=== PATIENT | female | born 1960 | race Caucasian/White ===

== ENCOUNTER 2016-09-15 08:01 | Outpatient (CLI) | payer OTHER ==
--- NOTE | 2016-09-15 18:39 | ULT ---
ABDOMINAL ULTRASOUND: Date: 09-15-16 Ultrasound of the abdomen was performed for evaluation of this patient with known Hepatitis C. Abdom inal pain was also reported. FINDINGS: The liver is 13.8 cm in oblique sagittal length which is normal. Internally it appears normal. There are no dilated ducts or masses seen. The gallbladder has at least one large gallstone and perhaps s ome smaller ones. The wall is mildly thick at 3 mm. The common bile duct is enlarged, being 8 mm in width. The pancreas was seen incompletely but the visible areas appear normal. The right kidney was 11.1 cm in length and the left kidney was 10.6 cm. Both appear normal. The spleen is normal in size. The inferior vena cava and aorta were unremarkable. IMPRESSION: 1. Gallstone with thickening of the gallbladder wall and enlargement of the common bile duct. 2. No hepatic abnormality seen. POS: HOME
== END 2016-09-15 08:02 | disposition home or self-care (01) ==
LOC: BURULT 08:01
PROVIDERS: ATTEND Internal Medicine Gastroenterology
DX: B18.2 Chronic viral hepatitis C (principal); K80.20 Calculus of gallbladder without cholecystitis without obstruction; K83.8 Other specified diseases of biliary tract
CPT/HCPCS: 76700

== ENCOUNTER 2016-10-06 12:57 | Emergency (ER) | payer OTHER ==
[2016-10-06] MEDS ORDERED: Nitroglycerin 0.4 MG TAB (25 Tab Bottle) ONE ×2 (13:07→13:31)
[2016-10-06 13:15] LABS: #Basophils 0.1 thou/uL (0.0-0.2); #Eosinphils 0.3 thou/uL (0.0-0.7); #Monocytes 0.5 thou/uL (0.11-0.59); #Neutrophils 6.4 thou/uL (1.40-6.50); %Basophils 0.6 % (0.0-1.0); %Eosinophils 3.1 % (0.0-10.0); %Lymphocytes 28.9 % (21.0-51.0); %Monocytes 5.3 % (0.0-10.0); %Neutrophils 62.1 % (42.0-75.0); Hemoglobin 16.3 g/dL (12.0-16.0); Mean Corpuscular HGB CONC 34.6 g/dL (32.0-36.0); Mean Corpuscular Hemoglobin 32.8 pg (27.0-31.0); Mean Corpuscular Volume 94.8 fl (81.0-99.0); Mean Platelet Volume 6.1 fL (7.4-10.4); Platelet Count 315 thou/uL (130-400); Red Blood Cell (RBC) Count 4.97 mill/uL (4.20-5.40); White Blood Cell (WBC) Count 10.2 thou/uL (4.8-10.8)
[2016-10-06 13:38] LABS: CKMB 0.5 ng/mL (0-6.6); Troponin I Less than 0.010 ng/mL (< 0.028)
[2016-10-06 13:39] LABS: ALT (SGPT) 20 U/L (8-55); AST (SGOT) 12 U/L (5-34); Albumin 3.8 g/dL (3.5-5.0); Alkaline Phosphatase 52 U/L (40-150); Anion Gap 13 mmol/L (10-20); BUN (Urea Nitrogen) 6 mg/dL (9.8-20.1); Bilirubin, Total 0.7 mg/dL (0.2-1.2); CK (CPK) 17 U/L (29-168); Calc. Creatinine Clearance 0 mL/min (70-130); Calcium 9.4 mg/dL (7.8-10.44); Carbon Dioxide 21 mmol/L (22-29); Chloride 108 mmol/L (98-107); Estimated GFR-MDRD 65; Globulin 3.7 g/dL (2.4-3.5); Glucose 170 mg/dL (70-105); Potassium 3.7 mmol/L (3.5-5.1); Protein, Total 7.5 g/dL (6.0-8.3); Sodium 138 mmol/L (136-145)
--- NOTE | 2016-10-06 17:57 | RAD ---
PORTABLE CHEST 10/06/16 An AP portable film at 1322 is compared with a 08/19/15 study from [facility]. The heart rylie ins normal in size and the lungs are clear. No infiltrate or effusion was appreciated. No mediastina l abnormality was detected. There is no vascular congestion or edema. IMPRESSION: No acute thoracic finding. POS: HOME
== END 2016-10-06 14:34 | disposition short-term general hospital (02) ==
LOC: BURERS 12:57
DX: R07.9 Chest pain, unspecified (principal); I25.10 Atherosclerotic heart disease of native coronary artery without angina pectoris; E78.5 Hyperlipidemia, unspecified; I10 Essential (primary) hypertension; F17.210 Nicotine dependence, cigarettes, uncomplicated; F41.9 Anxiety disorder, unspecified; Z79.899 Other long term (current) drug therapy
CPT/HCPCS: 71010; 80053; 82550; 82553; 83880; 84484; 85025; 93005

== ENCOUNTER 2017-02-15 13:30 | Emergency (ER) | payer OTHER ==
[2017-02-15 13:56] LABS: Bilirubin Negative (Negative); Blood, Urine Small (Negative); Clarity Clear (Clear); Glucose, Urine (Dipstick) Negative (Negative); Leukocyte Negative (Negative); Nitrite Negative (Negative); Protein, Urine (Dipstick) 30 mg/dL (Neg-Trace); Specific Gravity, Urine 1.015 (1.005-1.030)
[2017-02-15 14:25] LABS: Bacteria/HPF 1+ HPF (None Seen); Crystals/HPF None Seen HPF (Negative); Hyaline Casts/LPF NONE SEEN LPF (0-3 Hyaline); Other Casts/LPF None Seen LPF (0-3 Hyaline); Oval Fat Bodies/HPF None Seen HPF (None Seen); RBC/HPF 0-3 HPF (0-3); Renal Epithelial None Seen HPF (0-3); Sperm/HPF None Seen HPF (None Seen); Squamous Epithelial 0-3 HPF (0-3); Transitional Epithelial NONE SEEN HPF (0-3); Trichomonas/HPF None Seen HPF (None Seen); WBC/HPF 0-3 HPF (0-3); Yeast-All Forms None Seen HPF (None Seen)
--- NOTE | 2017-02-15 17:26 | CT ---
CT OF THE ABDOMEN AND PELVIS WITHOUT CONTRAST: Date: 02-15-17 Comparison: 10-04-15 FINDINGS: The lung bases are clear. The liver, spleen, pancreas, and kidneys showed no acute findings within th e limitations of a noncontrast study. There may be a little lower density in the left kidney, but con trast would be needed to see it better. The fluid in the gallbladder is a little hyperdense so I leti ot rule out sludge. There is a 3.4 cm mass in the left adrenal gland that was similar in appearance o n the prior CT. Average CT numbers were about -8 which makes it highly likely that this is an adenoma which was mentioned before. The kidneys showed no stones, hydronephrosis, and there was no sign of u reteral calculi. There was no explanation for hematuria. I would note that since there was a little l ow density area in the left kidney one might consider an elective ultrasound at some point as a secon d check of the area. There was a somewhat similar finding on the 2016 scan, however. The bowel is nondistended. There is no sign of obstruction, inflammatory change, free air or free flu id. CT of the pelvis showed no pelvic masses, fluid collections or inflammatory changes. There is some mi ld bulging of some of the lumbar discs. IMPRESSION: 1. No acute findings to explain the patient's symptoms. 2. 3.4 cm left adrenal adenoma, comparable to the prior scan. POS: HOME
== END 2017-02-15 15:15 | disposition home or self-care (01) ==
LOC: BURERS 13:30
DX: S23.3XXA Sprain of ligaments of thoracic spine, initial encounter (principal); E78.5 Hyperlipidemia, unspecified; I10 Essential (primary) hypertension; F31.9 Bipolar disorder, unspecified; F17.210 Nicotine dependence, cigarettes, uncomplicated; Z79.899 Other long term (current) drug therapy; X58.XXXA Exposure to other specified factors, initial encounter
CPT/HCPCS: 74176; 81003; 81015

== ENCOUNTER 2017-06-07 17:25 | Emergency (ER) | payer OTHER ==
[2017-06-07] MEDS ORDERED: Metoprolol Tartrate 5 MG/5 ML VIAL ONE (17:48)
[2017-06-07 18:12] LABS: ALT (SGPT) 31 U/L (8-55); AST (SGOT) 22 U/L (5-34); Albumin 4.2 g/dL (3.5-5.0); Alkaline Phosphatase 60 U/L (40-150); Anion Gap 17 mmol/L (10-20); BUN (Urea Nitrogen) 14 mg/dL (9.8-20.1); Bilirubin, Total 0.7 mg/dL (0.2-1.2); Calc. Creatinine Clearance 0 mL/min (70-130); Calcium 9.9 mg/dL (7.8-10.44); Carbon Dioxide 18 mmol/L (22-29); Chloride 104 mmol/L (98-107); Estimated GFR-MDRD 48; Globulin 4.1 g/dL (2.4-3.5); Glucose 128 mg/dL (70-105); Lipase 19 U/L (8-78); Potassium 4.1 mmol/L (3.5-5.1); Protein, Total 8.3 g/dL (6.0-8.3); Sodium 135 mmol/L (136-145)
[2017-06-07 18:19] LABS: INR-International Normal Ratio 0.9; Prothrombin Time 12.5 SEC (12.0-14.7)
[2017-06-07 18:20] LABS: PTT 25.8 SEC (22.9-36.1)
[2017-06-07] MEDS ORDERED: Nitroglycerin 2% Ointment 1 INCH/1 GM Packet ONE (18:21)
[2017-06-07 18:28] LABS: D-Dimer Test 0.28 *mcg/mL (0.27-0.43)
[2017-06-07 18:29] LABS: CKMB 0.7 ng/mL (0-6.6); Troponin I Less than 0.010 ng/mL (< 0.028)
[2017-06-07 18:45] LABS: #Basophils 0.1 thou/uL (0.0-0.2); #Eosinphils 0.3 thou/uL (0.0-0.7); #Lymphocytes 3.5 thou/uL (1.20-3.40); #Monocytes 0.6 thou/uL (0.11-0.59); #Neutrophils 5.7 thou/uL (1.40-6.50); %Basophils 0.8 % (0.0-1.0); %Eosinophils 2.6 % (0.0-10.0); %Lymphocytes 34.2 % (21.0-51.0); %Monocytes 6.1 % (0.0-10.0); %Neutrophils 56.3 % (42.0-75.0); Hemoglobin 17.1 g/dL (12.0-16.0); Mean Corpuscular HGB CONC 37.3 g/dL (32.0-36.0); Mean Corpuscular Hemoglobin 34.3 pg (27.0-31.0); Mean Corpuscular Volume 91.8 fl (81.0-99.0); Mean Platelet Volume 6.1 fL (7.4-10.4); Platelet Count 321 thou/uL (130-400); RBC Distribution Width 11.7 % (11.5-14.5); White Blood Cell (WBC) Count 10.2 thou/uL (4.8-10.8)
--- NOTE | 2017-06-07 21:33 | RAD ---
PORTABLE CHEST 06/07/17 An AP portable film at 1733 is compared with a 10/06/16 study. The heart is normal in size. There is no vascular congestion, edema, or pleural effusion. Some streak ing is seen near the cardiac apex which appears to be scarring. Overall, there has been no adverse ch mallory since the prior study. The lungs do appear hyperexpanded. IMPRESSION: No acute thoracic finding. POS: HOME
== END 2017-06-07 19:22 | disposition short-term general hospital (02) ==
LOC: BURERS 17:25
DX: R07.2 Precordial pain (principal); E66.9 Obesity, unspecified; I25.10 Atherosclerotic heart disease of native coronary artery without angina pectoris; E78.5 Hyperlipidemia, unspecified; I10 Essential (primary) hypertension; F41.9 Anxiety disorder, unspecified; F31.9 Bipolar disorder, unspecified; F17.210 Nicotine dependence, cigarettes, uncomplicated; Z79.899 Other long term (current) drug therapy
CPT/HCPCS: 36415; 71045; 80053; 82553; 83690; 83880; 84484; 85025; 85379; 85610; 85730; 93005; 94760; 96374

== ENCOUNTER 2017-11-14 08:49 | Outpatient (CLI) | payer OTHER ==
--- NOTE | 2017-11-14 19:18 | ULT ---
HEPATIC ULTRASOUND: 11/14/17 Ultrasonography of the right upper quadrant was performed in this patient with hepatitis C and gallst ones. The liver measures 15.2 cm in oblique sagittal length. Internally, I saw no dilated ducts or evidence of mass. Portal venous flow was appropriately towards the liver and hepatic venous flow away. The gallbladder is small and contracted and contains stones which cause intense shadowing. Gallbladde r wall was thick at 4 mm. The common bile duct was measured at 9 mm in caliber which is enlarged. No stones in the duct were appreciated. The pancreas was not seen exceptionally well. The visible areas appeared normal, however. the spleen was normal in size at 11.9 cm in length. The right kidney appear s normal and was 11.0 cm in length. IMPRESSION: 1. No significant hepatic abnormalities. 2. Contracted gallbladder with gallstones and a thick wall. Chronic cholecystitis is possible. 3. Enlargement of the common bile duct, etiology unknown. POS: HOME
== END 2017-11-14 08:50 | disposition home or self-care (01) ==
LOC: BURULT 08:49
PROVIDERS: ATTEND Internal Medicine Gastroenterology
DX: K80.20 Calculus of gallbladder without cholecystitis without obstruction (principal); B19.20 Unspecified viral hepatitis C without hepatic coma; K22.2 Esophageal obstruction; K21.9 Gastro-esophageal reflux disease without esophagitis; R19.8 Other specified symptoms and signs involving the digestive system and abdomen; Z86.010 Personal history of colon polyps; Z80.0 Family history of malignant neoplasm of digestive organs; K83.8 Other specified diseases of biliary tract
CPT/HCPCS: 76705

== ENCOUNTER 2018-09-21 15:38 | Emergency (ER) | payer OTHER ==
[2018-09-21] MEDS ORDERED: cefTRIAXone\\ROCEPHIN 1 GM VIAL ONE (16:03)
[2018-09-21] MEDS ORDERED: Lidocaine 1% PF 5 ML VIAL ONE (16:03)
== END 2018-09-21 16:11 | disposition home or self-care (01) ==
LOC: BURERS 15:38
DX: K04.7 Periapical abscess without sinus (principal); I10 Essential (primary) hypertension; I25.10 Atherosclerotic heart disease of native coronary artery without angina pectoris; J45.909 Unspecified asthma, uncomplicated; E78.5 Hyperlipidemia, unspecified; K21.9 Gastro-esophageal reflux disease without esophagitis; G47.00 Insomnia, unspecified; F41.9 Anxiety disorder, unspecified; F31.9 Bipolar disorder, unspecified; F17.210 Nicotine dependence, cigarettes, uncomplicated; Z79.899 Other long term (current) drug therapy
CPT/HCPCS: 96372; 99282; J0696; J2001

== ENCOUNTER 2019-02-04 14:09 | Outpatient (CLI) | payer OTHER ==
--- NOTE | 2019-02-04 14:57 | RAD ---
RIGHT SHOULDER THREE VIEWS: 02/04/2019 FINDINGS: No fracture, dislocation or AC joint widening is seen. There is some bony spurring on the undersurfac e of the AC joint, which potentially could cause some impingement of passing muscles and tendons. IMPRESSION: No acute bony findings. POS: HOME
== END 2019-02-04 14:10 | disposition home or self-care (01) ==
LOC: BURRAD 14:09
PROVIDERS: ATTEND Physician Assistant
DX: M25.511 Pain in right shoulder (principal); W19.XXXA Unspecified fall, initial encounter

== ENCOUNTER 2019-04-04 15:38 | Emergency (ER) | payer OTHER ==
[2019-04-04] MEDS ORDERED: Aspirin Chewable 81 MG TAB ONE (16:10)
[2019-04-04] MEDS ORDERED: Nitroglycerin 0.4 MG TAB 1 EACH ONE (16:17)
[2019-04-04] MEDS ORDERED: Nitroglycerin 2% Ointment 1 INCH/1 GM Packet ONE (16:17)
[2019-04-04] MEDS ORDERED: Ondansetron PF 4 MG/2 ML Vial ONE ×2 (16:25)
[2019-04-04 16:29] LABS: ALT (SGPT) 16 U/L (8-55); AST (SGOT) 13 U/L (5-34); Alkaline Phosphatase 50 U/L (40-110); Anion Gap 13 mmol/L (10-20); BUN (Urea Nitrogen) 8 mg/dL (9.8-20.1); Bilirubin, Total 0.6 mg/dL (0.2-1.2); CK (CPK) 56 U/L (29-168); Calc. Creatinine Clearance 0 mL/min (70-130); Calcium 9.4 mg/dL (7.8-10.44); Carbon Dioxide 24 mmol/L (22-29); Chloride 104 mmol/L (98-107); Digoxin Less than 0.15 ng/mL (0.8-2.0); Estimated GFR-MDRD 79; Globulin 3.7 g/dL (2.4-3.5); Glucose 126 mg/dL (70-105); Lipase 17 U/L (8-78); Protein, Total 7.7 g/dL (6.0-8.3); Sodium 137 mmol/L (136-145)
[2019-04-04 16:31] LABS: #Eosinphils 0.1 thou/uL (0.0-0.7); #Lymphocytes 2.6 thou/uL (1.20-3.40); #Monocytes 0.5 thou/uL (0.11-0.59); #Neutrophils 5.4 thou/uL (1.40-6.50); %Basophils 0.5 % (0.0-1.0); %Eosinophils 1.1 % (0.0-10.0); %Lymphocytes 30.2 % (21.0-51.0); %Monocytes 5.9 % (0.0-10.0); %Neutrophils 62.2 % (42.0-75.0); Mean Corpuscular HGB CONC 33.9 g/dL (32.0-36.0); Mean Corpuscular Hemoglobin 32.1 pg (27.0-31.0); Mean Corpuscular Volume 94.8 fL (78.0-98.0); Mean Platelet Volume 6.9 fL (7.4-10.4); Platelet Count 282 thou/uL (130-400); RBC Distribution Width 11.5 % (11.5-14.5); Red Blood Cell (RBC) Count 4.97 mill/uL (4.20-5.40); White Blood Cell (WBC) Count 8.7 thou/uL (4.8-10.8)
--- NOTE | 2019-04-04 17:04 | RAD ---
PORTABLE CHEST: 04/04/19 An AP portable film at 1607 is compared with a 06/07/17 study. The heart is normal in size and the lungs are clear. No infiltrate or effusion was seen. There has be en no adverse interval change. IMPRESSION: No acute thoracic finding. POS: HOME
== END 2019-04-04 17:14 | disposition short-term general hospital (02) ==
LOC: BURERS 15:38
DX: R07.2 Precordial pain (principal); I25.10 Atherosclerotic heart disease of native coronary artery without angina pectoris; E78.5 Hyperlipidemia, unspecified; I10 Essential (primary) hypertension; J45.909 Unspecified asthma, uncomplicated; G47.00 Insomnia, unspecified; F41.9 Anxiety disorder, unspecified; F31.9 Bipolar disorder, unspecified; F17.210 Nicotine dependence, cigarettes, uncomplicated; Z79.899 Other long term (current) drug therapy
CPT/HCPCS: 71045; 80053; 80162; 82550; 83690; 83880; 84484; 85025; 93005; 94760; J2405

== ENCOUNTER 2019-09-27 11:55 | Emergency (ER) | payer OTHER | END 2019-09-27 13:00 | disposition home or self-care (01) | LOC: BURERS 11:55 | DX: N81.10 Cystocele, unspecified (principal); I25.10 Atherosclerotic heart disease of native coronary artery without angina pectoris; K21.9 Gastro-esophageal reflux disease without esophagitis; E78.5 Hyperlipidemia, unspecified; I10 Essential (primary) hypertension; J45.909 Unspecified asthma, uncomplicated; F41.9 Anxiety disorder, unspecified; F31.9 Bipolar disorder, unspecified; F17.210 Nicotine dependence, cigarettes, uncomplicated; Z79.899 Other long term (current) drug therapy | CPT/HCPCS: 99283 ==

== ENCOUNTER 2020-08-21 23:52 | Emergency (ER) | payer MEDICARE, OTHER ==
[2020-08-22 00:40] LABS: #Basophils 0.1 thou/uL (0.0-0.2); #Eosinphils 0.3 thou/uL (0.0-0.7); #Lymphocytes 3.5 thou/uL (1.20-3.40); #Monocytes 0.8 thou/uL (0.11-0.59); #Neutrophils 6.1 thou/uL (1.40-6.50); %Basophils 0.8 % (0.0-1.0); %Eosinophils 2.8 % (0.0-10.0); %Lymphocytes 32.4 % (21.0-51.0); %Monocytes 7.3 % (0.0-10.0); %Neutrophils 56.6 % (42.0-75.0); Mean Corpuscular HGB CONC 35.4 g/dL (32.0-36.0); Mean Corpuscular Hemoglobin 33.4 pg (27.0-31.0); Mean Corpuscular Volume 94.4 fL (78.0-98.0); Mean Platelet Volume 6.5 fL (7.4-10.4); Platelet Count 314 thou/uL (130-400); RBC Distribution Width 11.8 % (11.5-14.5); White Blood Cell (WBC) Count 10.7 thou/uL (4.8-10.8)
[2020-08-22 00:51] LABS: ALT (SGPT) 13 U/L (8-55); AST (SGOT) 10 U/L (5-34); Albumin 4.1 g/dL (3.5-5.0); Alkaline Phosphatase 55 U/L (40-110); Anion Gap 15 mmol/L (10-20); BUN (Urea Nitrogen) 5 mg/dL (9.8-20.1); Bilirubin, Total 0.4 mg/dL (0.2-1.2); Calc. Creatinine Clearance 0 mL/min (70-130); Calcium 9.3 mg/dL (7.8-10.44); Carbon Dioxide 20 mmol/L (22-29); Chloride 107 mmol/L (98-107); Globulin 3.8 g/dL (2.4-3.5); Glucose 136 mg/dL (70-105); Potassium 4.1 mmol/L (3.5-5.1); Protein, Total 7.9 g/dL (6.0-8.3); Sodium 138 mmol/L (136-145)
[2020-08-22] MEDS ORDERED: methylPREDNISolone Sod Succ/PF 125 MG/2 ML VIAL ONE (01:07)
== END 2020-08-22 01:44 | disposition home or self-care (01) ==
LOC: BURERS 23:52
DX: R07.89 Other chest pain (principal); R09.1 Pleurisy; K21.9 Gastro-esophageal reflux disease without esophagitis; E78.5 Hyperlipidemia, unspecified; I10 Essential (primary) hypertension; J44.9 Chronic obstructive pulmonary disease, unspecified; F17.210 Nicotine dependence, cigarettes, uncomplicated; Z79.82 Long term (current) use of aspirin; Z79.899 Other long term (current) drug therapy
CPT/HCPCS: 71046; 80053; 84484; 85025; 85379; 93005; 94760; 96374; J2930